=== PATIENT | male | born 1980 | race Two or more races ===

== ENCOUNTER 2017-04-08 12:11 | Emergency (ER) | payer OTHER ==
[~2017-04-08] VITALS: Ht 180.3 cm; Wt 104.3 kg
[2017-04-08 13:11] VITALS: BP 110/54
--- NOTE | 2017-04-08 13:35 | RAD ---
Exam performed:3 views left shoulder, 2 views left forearm and 3 views left hand Indication:Pain. Date of service:04/08/17. Comparison:None available 3 views left shoulder Findings : AP radiographs of the shoulder in internal and external rotation as well as a Y-view reveal the osseous structures to be intact and well aligned. Old healed fracture left proximal humerus is noted. The joint space is well-preserved. The articular margins are smooth. Impression: 1. No acute abnormality seen in the left shoulder End impression 2 views left forearm findings: Normal alignment of the elbow and wrist joint is preserved. There is no acute fracture or dislocation. No soft tissue swelling or foreign body seen. Impression: 1. Negative exam. End impression 3 views left hand findings: There is mild osteopenia. Postoperative changes are seen in the fourth metacarpal with a plate and several screws. The bony alignment appears preserved. There is no acute fracture or dislocation. There is soft tissue swelling. No foreign body. Impression: 1. Soft tissue swelling and generalized osteopenia. 2. No acute abnormality seen.
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
[2017-04-08] MEDS ORDERED: TRAM-48 PO (13:46)
== END 2017-04-08 13:50 | disposition home or self-care (01) ==
LOC: ER 12:11
DX: S60.222A Contusion of left hand, initial encounter (principal); F17.200 Nicotine dependence, unspecified, uncomplicated; F03.90 Unspecified dementia, unspecified severity, without behavioral disturbance, psychotic disturbance, mood disturbance, and anxiety; G89.29 Other chronic pain; W19.XXXA Unspecified fall, initial encounter; Y93.89 Activity, other specified; Y92.89 Other specified places as the place of occurrence of the external cause; Y99.8 Other external cause status
CPT/HCPCS: 73030; 73090; 73130; 99284

== ENCOUNTER 2017-09-25 18:37 | Emergency (ER) | payer OTHER ==
[2017-09-25] MEDS: HYDROcodone/APAP 5/325MG 1 TAB TABLET PO (19:59)
== END 2017-09-25 20:48 | disposition home or self-care (01) ==
LOC: ER 18:37
DX: S40.012A Contusion of left shoulder, initial encounter (principal); S50.02XA Contusion of left elbow, initial encounter; S60.222A Contusion of left hand, initial encounter; F12.10 Cannabis abuse, uncomplicated; F03.90 Unspecified dementia, unspecified severity, without behavioral disturbance, psychotic disturbance, mood disturbance, and anxiety; F17.210 Nicotine dependence, cigarettes, uncomplicated; G89.29 Other chronic pain; V98.8XXA Other specified transport accidents, initial encounter; Y93.89 Activity, other specified; Y99.8 Other external cause status; Y92.488 Other paved roadways as the place of occurrence of the external cause
CPT/HCPCS: 73030; 73070; 73090; 73130; 99284

== ENCOUNTER 2020-01-13 15:14 | Inpatient (IN) | payer OTHER ==
[~2020-01-13] VITALS: Ht 180.3 cm; Wt 99.8 kg
[~2020-01-13 15:14] MED LIST: DIAZ5TAB PO; HYDR-2761 PO; NAPR-683 PO; TRAM-48 PO
[2020-01-13] MEDS ORDERED: IV NORMAL SALINE 1000ML BAG 1,000 ML IV ONE (15:30)
[2020-01-13 15:41] LABS: BASO % 1 % (0-3); EOS # 0.1 x10^3/uL (0.0-0.7); EOS % 2 % (0-3); HEMOGLOBIN 13.4 g/dL (13.0-17.5); LYMPH # 1.6 x10^3/uL (1.0-4.8); LYMPH % 28 % (24-48); MEAN CORPUSCULAR HEMOGLOBIN 32 pg (25-35); MEAN CORPUSCULAR HGB CONC 34 g/dL (31-37); MEAN CORPUSCULAR VOLUME 94 fL (79-100); MONO # 0.7 x10^3/uL (0.0-1.1); MONO % 11 % (0-9); NEUT # 3.4 x10^3/uL (1.8-7.7); NEUT % 59 % (31-73); PLATELET COUNT 227 x10^3/uL (140-400); RED BLOOD COUNT 4.16 x10^6/uL (4.30-5.70); RED CELL DISTRIBUTION WIDTH 13.8 % (11.5-14.5); WHITE BLOOD COUNT 5.8 x10^3/uL (4.0-11.0)
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
[2020-01-13 15:48] LABS: CALCIUM 8.1 mg/dL (8.5-10.1); CREATININE 0.9 mg/dL (0.7-1.3); POTASSIUM 3.8 mmol/L (3.5-5.1)
[2020-01-13 15:58] LABS: ALBUMIN 3.4 g/dL (3.4-5.0); ALBUMIN/GLOBULIN RATIO 1.1 (1.0-1.7); TOTAL BILIRUBIN 0.2 mg/dL (0.2-1.0); TOTAL PROTEIN 6.4 g/dL (6.4-8.2)
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
[2020-01-13 17:14] LABS: BILIRUBIN,URINE NEGATIVE (NEG); CLARITY,URINE CLEAR; COLOR,URINE YELLOW; NITRITE,URINE NEGATIVE (NEG); PROTEIN,URINE NEGATIVE (NEG-TRACE); UROBILINOGEN,URINE 0.2 mg/dL (0.2 mg/dL)
[2020-01-13 17:20] LABS: BARBITURATES NEG (NEG); BENZODIAZEPINES NEG (NEG); CANNABINOIDS NEG (NEG); COCAINE NEG (NEG); METHADONE NEG (NEG); OPIATES NEG (NEG); PHENCYCLIDINE POS (NEG)
[2020-01-13 17:26] LABS: AMPHETAMINE/METHAMPHETAMINE NEG (NEG); SQUAMOUS EPITHELIAL CELL,UR OCC /LPF
[2020-01-13 17:27] LABS: BACTERIA,URINE 0 /HPF (0-FEW); RBC,URINE 0 /HPF (0-2); WBC,URINE 0 /HPF (0-4)
[2020-01-13] MEDS ORDERED: LABETALOL 20 MG/4 ML DISP.SYRIN. IVP PRN (19:15)
[2020-01-13] MEDS ORDERED: ACETAMINOPHEN 325 MG TABLET. PO PRN (19:15)
[2020-01-13] MEDS ORDERED: ACETAMINOPHEN 650 MG SUPP.RECT. PR PRN (19:15)
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
[2020-01-13] MEDS ORDERED: BACL10TA PO (19:42)
[2020-01-13] MEDS ORDERED: ARIP20TA5 PO (19:42)
[2020-01-13] MEDS ORDERED: ASPI-630 PO (19:42)
[2020-01-13] MEDS ORDERED: BUPR200T2 PO (19:42)
[2020-01-13] MEDS ORDERED: PREG300C PO (19:42)
[2020-01-13] MEDS ORDERED: MIRT30TA PO (19:42)
[2020-01-13] MEDS ORDERED: CETI10TA24 PO (19:42)
[2020-01-13] MEDS ORDERED: ENOXAPARIN 40 MG/0.4 ML SYRINGE. SQ SCH (20:00)
[2020-01-13 20:12] VITALS: BP 119/64
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
[2020-01-13] MEDS: IV NORMAL SALINE 1000ML BAG 1,000 ML IV SCH (20:53)
[2020-01-13] MEDS: BACLOFEN 10 MG TABLET. PO SCH (20:57)
[2020-01-13] MEDS: PREGABALIN 75 MG CAPSULE PO SCH (20:58)
[2020-01-13] MEDS ORDERED: ATORVASTATIN CALCIUM 40 MG TABLET. PO SCH (21:00)
[2020-01-13] MEDS ORDERED: MIRTAZAPINE 15 MG TABLET PO SCH (21:00)
--- NOTE | 2020-01-13 22:10 | RAD ---
Exam: Ultrasound carotid bilateral duplex Indication: Syncope Technique: Real-time grayscale and color Doppler images of the carotid were obtained by the department central office technician. Comparisons: None FINDINGS: Peak systolic velocity as follows: Right: Common carotid artery: 93 cm/s Internal carotid artery: 55 cm/s External carotid artery: 80 cm/s Left: Common carotid artery: 82 cm/s Internal carotid artery: 89 cm/s External carotid artery: 90 cm/s Anterior grade flow is noted within the vertebral arteries bilaterally. IMPRESSION: Patent carotid arterial vasculature without evidence of stenosis. Electronically signed by: Devyn Blood MD (01/13/2020 10:07 PM) [id number]
[2020-01-13 23:48] VITALS: BP 109/73
[2020-01-14 03:35] VITALS: BP 116/65
[2020-01-14] MEDS: IV NORMAL SALINE 1000ML BAG 1,000 ML IV SCH ×2 (06:32→15:13)
[2020-01-14 07:16] VITALS: BP 98/60
[2020-01-14] MEDS ORDERED: ASPIRIN CHEWABLE 81 MG TABLET. PO SCH (08:00)
[2020-01-14] MEDS: PREGABALIN 75 MG CAPSULE PO SCH (08:48)
[2020-01-14] MEDS: BACLOFEN 10 MG TABLET. PO SCH (08:48)
[2020-01-14] MEDS ORDERED: ARIPiprazole 5 MG TABLET PO SCH (09:00)
[2020-01-14] MEDS ORDERED: buPROPion SR 100 MG TABLET.SA. PO SCH (09:00)
[2020-01-14 11:15] VITALS: BP 109/59
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
--- NOTE | 2020-01-14 14:58 | DISCH ---
DISCHARGE INSTRUCTIONS Condition on Discharge Condition on Discharge: Stable Activity After Discharge Activity Instructions for Disc: No restrictions Driving Instructions after Dis: Do not drive, No driving for 2 weeks Diet after Discharge Diet after Discharge: Regular Checks after Discharge Checks after discharge: Check your Temp as needed Contacting the DRMarcial after DC Call your doctor for: If your condition worsens Follow-Up Follow up with: Neurology if needed NANY COSBY MD Jan 14, 2020 14:58
[2020-01-14 15:23] VITALS: BP 106/59
--- NOTE | 2020-01-14 15:42 | NUR ---
Wound Care: Pt is in the process of being discharge, would like to follow up with outpatient [facility], WC will arrange appt with pt after discharge.
--- NOTE | 2020-01-14 16:05 | NUR ---
SW following for discharge planning. Spoke with RN and CM. Pt ready to discharge today per Dr. Schneider. Pt to discharge on oral medications and room air. No further SW needs identified at this time.
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
== END 2020-01-14 16:00 | disposition home or self-care (01) | DRG 312 ==
LOC: ER 15:14 → ED HOLD 17:24 → 6 SOUTH 19:11
PROVIDERS: ADMIT Internal Medicine; ATTEND Internal Medicine
DX: R55 Syncope and collapse (principal); I69.354 Hemiplegia and hemiparesis following cerebral infarction affecting left non-dominant side; F32.9 Major depressive disorder, single episode, unspecified; F03.90 Unspecified dementia, unspecified severity, without behavioral disturbance, psychotic disturbance, mood disturbance, and anxiety; F17.200 Nicotine dependence, unspecified, uncomplicated; F43.10 Post-traumatic stress disorder, unspecified; F16.90 Hallucinogen use, unspecified, uncomplicated; G89.29 Other chronic pain; F12.10 Cannabis abuse, uncomplicated; F19.10 Other psychoactive substance abuse, uncomplicated; V49.9XXA Car occupant (driver) (passenger) injured in unspecified traffic accident, initial encounter; Y93.89 Activity, other specified; Y92.89 Other specified places as the place of occurrence of the external cause; Y99.8 Other external cause status
CPT/HCPCS: 36415; 70450; 80053; 80307; 81001; 85025; 93306; 93880; 96360; 99285; G0480; J1650; J7030; 92610-GN; G0378

== ENCOUNTER 2020-12-21 15:57 | Emergency (ER) | payer OTHER ==
[~2020-12-21] VITALS: Ht 180.3 cm; Wt 104.0 kg
[~2020-12-21 15:57] MED LIST changes: +ARIP20TA5 PO; +ASPI-630 PO; +BACL10TA PO; +BUPR200T2 PO; +CETI10TA74 PO; +MIRT-34 PO; +PREG300C PO
[2020-12-21] MEDS ORDERED: ONDANSETRON PF 4 MG/2 ML VIAL. IVP ONE (16:30)
[2020-12-21] MEDS ORDERED: IV NORMAL SALINE 1000ML BAG 1,000 ML IV ONE (16:30)
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
[2020-12-21 16:36] LABS: BASO % 0 % (0-3); EOS % 0 % (0-3); HEMATOCRIT 50.5 % (39.0-53.0); HEMOGLOBIN 17.2 g/dL (13.0-17.5); LYMPH # 2.5 x10^3/uL (1.0-4.8); LYMPH % 20 % (24-48); MEAN CORPUSCULAR HEMOGLOBIN 31 pg (25-35); MEAN CORPUSCULAR HGB CONC 34 g/dL (31-37); MEAN CORPUSCULAR VOLUME 91 fL (79-100); MONO # 1.4 x10^3/uL (0.0-1.1); MONO % 11 % (0-9); NEUT # 8.7 x10^3/uL (1.8-7.7); NEUT % 69 % (31-73); PLATELET COUNT 387 x10^3/uL (140-400); RED BLOOD COUNT 5.54 x10^6/uL (4.30-5.70); RED CELL DISTRIBUTION WIDTH 14.6 % (11.5-14.5); WHITE BLOOD COUNT 12.6 x10^3/uL (4.0-11.0)
[2020-12-21 16:49] LABS: CALCIUM 9.9 mg/dL (8.5-10.1); CREATININE 1.1 mg/dL (0.7-1.3); GFR 88.8; POTASSIUM 3.1 mmol/L (3.5-5.1)
[2020-12-21 17:00] LABS: ALBUMIN 5.2 g/dL (3.4-5.0); ALBUMIN/GLOBULIN RATIO 1.6 (1.0-1.7); TOTAL BILIRUBIN 0.9 mg/dL (0.2-1.0); TOTAL PROTEIN 8.5 g/dL (6.4-8.2)
[2020-12-21] MEDS ORDERED: POTASSIUM CHLORIDE 20 MEQ TABLET.ER. PO ONE (17:15)
[2020-12-21 18:01] VITALS: BP 131/73
[2020-12-21] MEDS ORDERED: ONDA4TAB7 PO (18:14)
== END 2020-12-21 18:38 | disposition home or self-care (01) ==
LOC: ER 15:57
DX: R11.2 Nausea with vomiting, unspecified (principal); F17.200 Nicotine dependence, unspecified, uncomplicated; G89.29 Other chronic pain; Z86.73 Personal history of transient ischemic attack (TIA), and cerebral infarction without residual deficits
CPT/HCPCS: 36415; 80053; 83690; 85025; 96361; 96374; 99285; J2405; J7030

== ENCOUNTER 2021-06-03 08:18 | Emergency (ER) | payer OTHER ==
[~2021-06-03] VITALS: Ht 180.3 cm; Wt 98.2 kg
[~2021-06-03 08:18] MED LIST changes: +ONDA4TAB7 PO
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
--- NOTE | 2021-06-03 09:17 | RAD ---
XR LEFT CLAVICLE, XR SHOULDER_LEFT 2+ VIEWS History: Reason: FALL, PAIN / Spl. Instructions: / History: Technique: 3 views left shoulder and 2 views left clavicle Comparison: September 17, 2017 Findings: Acute left distal clavicular fracture. No dislocation of the glenohumeral or acromioclavicular joints . 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 Impression: 1. Acute left distal clavicular fracture. 2. Advanced left glenohumeral DJD. Electronically signed by: Sid Sanchez DO (06/03/2021 9:15 AM) [facility]
[2021-06-03 10:29] VITALS: BP 117/65
== END 2021-06-03 10:56 | disposition home or self-care (01) ==
LOC: ER 08:18
DX: S42.032A Displaced fracture of lateral end of left clavicle, initial encounter for closed fracture (principal); M19.012 Primary osteoarthritis, left shoulder; W01.0XXA Fall on same level from slipping, tripping and stumbling without subsequent striking against object, initial encounter; Y93.89 Activity, other specified; Y92.89 Other specified places as the place of occurrence of the external cause; Y99.8 Other external cause status
CPT/HCPCS: 73000; 73030; 99285; A4565